=== PATIENT | male | born 1950 | race Caucasian/White ===

== ENCOUNTER 2024-10-01 07:56 | Day surgery (SDC) | payer OTHER, SELFPAY ==
[2024-09-14 09:59] VITALS: BMI 29.2
[2024-09-14 10:35] LABS: INR 1.22; PT 15.7 Sec (11.4-14.6)
[2024-09-14 10:56] LABS: % Basophils 2.1 % (0-2); % Eosinophils 4.6 % (0-6); % Immature Granulocytes 0.4 % (0-0.5); % Lymphocytes 17.5 % (20.5-51.1); % Monocytes 10.3 % (1.7-9.3); % Neutrophils 65.1 % (42.2-75.2); Absolute Basophils 0.2 10^3/uL (0-0.2); Absolute Eosinophils 0.4 10^3/uL (0-0.7); Absolute Lymphocytes 1.6 10^3/uL (1.2-3.4); Absolute Monocytes 0.9 10^3/uL (0.1-0.6); Absolute Neutrophils 5.8 10^3/uL (1.4-6.5); Hematocrit 49.2 % (39.0-52.0); Hemoglobin 16.3 g/dL (13.0-18.0); Mean Corp Hgb Conc. 33.1 g/dL (33.0-37.0); Mean Corpuscular Hgb 29.1 pg (27.0-31.0); Mean Corpuscular Volume 87.9 fL (80.0-94.0); Mean Platelet Volume 10.2 fL (7.4-10.4); Nucleated Red Blood Cells % 0 % (-); Platelet Count 688 10^3/uL (130-400); Red Cell Dist. Width 16.1 % (11.5-14.5)
[2024-09-14 11:12] LABS: ALT (SGPT) 20 U/L (0-50); AST (SGOT) 25 U/L (17-59); Albumin 4.4 g/dl (3.5-5.0); Alkaline Phosphatase 74 U/L (38-126); Blood Urea Nitrogen 23 mg/dl (9-20); Calcium 9.9 mg/dl (8.4-10.2); Carbon Dioxide 24 mmol/L (22-30); Chloride 112 mmol/L (98-107); Estimated Creatinine Clearance 81 ml/min; Glucose 90 mg/dl (70-99); Magnesium 1.9 mg/dl (1.6-2.3); Potassium 5.1 mmol/L (3.5-5.1); Sodium 142 mmol/L (135-145); Total Bilirubin 1.4 mg/dl (0.2-1.3); Total Protein 6.5 g/dl (6.3-8.2); eGFR > 60.00
--- NOTE | 2024-09-15 14:46 | W.PN.UPDATE ---
Update Note
Progress Note Update
Thrombocytosis Platelets 688-faxed to PCP-confirmed office has received. Spoke to Dr. Tomás anderson. Baseline platelet range for patient dates back to 2019 and is b/w 500-700 with no formal platelet disorder nor complication due to this.
We are ok to proceed with PVI per Dr. Matthews. Possible essential thrombocytosis with no additional abnormality on CBC. Eventual hematology eval/bone marrow biopsy if indicated.
[2024-10-01] VITALS (10 sets, daily range): BP systolic 144–158; BP diastolic 68–86; BMI 28.4
[2024-10-01 11:28] LABS: ACT-LR - POC 277 Seconds (116-155)
[2024-10-01 11:57] LABS: ACT-LR - POC 244 Seconds (116-155)
--- NOTE | 2024-10-01 12:13 | ITS.CL.ABL ---
Switch Foreman - Ablation
Ablation
Procedure Report:
ELECTROPHYSIOLOGY ABLATION STUDY
DATE:: October 01, 2024�����������������������������REFERRING: Dr. Carlyle Lazar
INDICATION: Paroxysmal supraventricular tachycardia in the form of atrial fibrillation.��Prior history of coronary artery bypass surgery
HISTORY: See H and P.��As above
ANTIARRHYTHMIC DRUG: Diltiazem
PRE-PROCEDURE GEE: No atrial thrombus on intracardiac ultrasound
PRESENTING RHYTHM: Sinus rhythm
'TIME-OUT':��called and confirmed.
SEDATION/ANESTHESIA:��provided via the anesthesia department using general anesthesia (LMA).
INTRAVENOUS/ARTERIAL ACCESS:
Right femoral venous - 8Fr
Left femoral venous - 8 Fr, 6 Fr
[id number] suture to each venotomy site was placed for a adequate hemostasis
Ultrasound guidance for bilateral femoral vein access was utilized by me to obtain access with demonstration of normal anatomy
CHADS-VASC Score:
HAS-Bled Score
PROCEDURE:
1.��A decapolar CS catheter was placed within the CS for mapping and pacing.��This was also used as the reference catheter for the 3-D map.
2. The intracardiac ultrasound catheter was positioned in the RA to identify the FO for targeting of transseptal puncture, assist��in identification of the pulmonary vein ostia, monitoring pre and post ablation pulmonary vein flow velocities,
monitoring for 'bubble' formation during RF application as a sign of thermal injury,��and to monitor for pericardial effusion during mapping and ablation procedure.���Left atrial size, LV ejection fraction, and pulmonary vein flows were monitored
pre and post ablation procedure. The other valves were inspected and found to be free of significant regurgitation or stenosis.
3.��Half of the calculated heparin bolus was administered prior to the first transeptal puncture.��Transseptal puncture was performed to diagnose RA and LA pressure so that safetey of LA mapping and ablation could be further assessed, and to access
the left atrium and pulmonary veins for mapping and ablation.��This entailed advancing an 16.8 Japanese sheath, RF wire with sheath and with dilator into the superior vena cava and withdrawing both (monitoring intracardiac ultrasound, fluoroscopy and
tip pressure) with the tip oriented toward the atrial septum.��The fossa ovalis was engaged (indicated by sudden displacement of the sheath tip as well as tenting of the fossa seen on intracardiac ultrasound).��Left atrial access required a pass
with the Brock[place]rough needle extended.��Left atrial catheter position was confirmed by pressure monitoring (RA mean pressure 8 mm Hg and LA mean presure 14 mm Hg), LA saturation (99%),��as well as fluoroscopy.��The sheath was advanced over the
dilator and positioned in the left atrium.��The remainder of the calculated heparin bolus was administered and heparin was
infused to maintain ACT at 300 -350 seconds throughout the case.
4.��RA pacing was performed via the proximal decapolar poles and LA pacing was performed via the distal decapolar poles.
5. A quadrapolar catheter was first positioned at the His position for His Bundle recording which was tagged via the 3-D Navex sytem, and then passed to the RVA for RV pacing and recording.
6. The grid and Penta spline catheter were placed in each of the LIPV, LSPV, RSPV and the RIPV.��
7.��Next, a 3-D map was created using Navex.���A 3-D reconstructed CT image was compared to the 3-D Navex map to assist in anatomic interpretation, mapping and ablation.��The CT image and the NavX image were fused.
8. Initial 56 lesions were given in flower and all of post to the pulmonary veins and floor opposed to the roof posterior wall and floor. During ablation of the left inferior pulmonary vein initially the patient went into atrial fibrillation. We
proceeded to ablate each of the 4 veins with all of in basket pose in atrial fibrillation persisted. We then performed a roof line, floor line, and posterior wall substrate ablation in the left atrial posterior wall in atrial fibrillation as atrial
fibrillation persisted and persisted through this lesion set. We then cardioverted the patient to sinus rhythm 1 200 J synchronized biphasic shock and demonstrated all 4 pulmonary veins to be isolated in the posterior wall large isolated but with
persistent signal in the roof and anterior roof outside the left superior pulmonary vein. 17 additional lesions were given in basket and flower opposed to the roof and its anterior aspect and posterior aspect as well as to the floor of the left
inferior pulmonary vein just outside the left inferior pulmonary vein. A total then of 73 lesions were given with entrance exit block and the posterior wall roof and floor left atrium as well as all 4 pulmonary veins. EP study with atrial
extrastimuli burst atrial pacing and AV Wenckebach did not induce any other nonpulmonary vein triggers or other supraventricular mechanisms of arrhythmia.
9. Normal sinus node and AV node function noted.
TOTAL FLOURO TIME: 14.1 minutes 123 mGy
TOTAL RF DURATION: 0 minutes
REVERSAL OF HEPARIN: 25 mg of protamine, slow IV administration
COMPLICATIONS:
None
Intracardiac US shows no pericardial effusion post ablation.
SUMMARY:��
Complex left atrial mapping and ablation.
Isolation of all 4 pulmonary veins as well as the posterior wall roof and floor the left atrium as above. The posterior wall lesions were performed in atrial fibrillation and atrial fibrillation persisted through all the extrapulmonary vein
substrate. Patient was cardioverted to sinus rhythm.
RECOMMENDATIONS:
1. Ambulate in 4 hours
2. Resume anticoagulation
3.��Plan to see the patient in 6 to 8 weeks
4.��Consider same-day discharge
Copy to: Dr. Carlyle Lazar
== END 2024-10-01 16:55 | disposition home or self-care (01) ==
LOC: CATH 07:56
PROVIDERS: ATTENDING PHYSICIAN Internal Medicine Cardiovascular Disease; FAMILY PHYSICIAN Family Medicine Sports Medicine; OTHER PHYSICIAN Internal Medicine Cardiovascular Disease
DX: I48.0 Paroxysmal atrial fibrillation (principal); I47.19 Other supraventricular tachycardia; D75.839 Thrombocytosis, unspecified; E03.9 Hypothyroidism, unspecified; E78.5 Hyperlipidemia, unspecified; I10 Essential (primary) hypertension; I25.10 Atherosclerotic heart disease of native coronary artery without angina pectoris; M10.9 Gout, unspecified; M19.90 Unspecified osteoarthritis, unspecified site; N40.0 Benign prostatic hyperplasia without lower urinary tract symptoms; Z79.01 Long term (current) use of anticoagulants; Z79.890 Hormone replacement therapy; Z79.899 Other long term (current) drug therapy; Z87.891 Personal history of nicotine dependence; Z90.49 Acquired absence of other specified parts of digestive tract; Z95.1 Presence of aortocoronary bypass graft; Z96.653 Presence of artificial knee joint, bilateral
CPT/HCPCS: C1732; C1894; C1730; C1769; C1892; C1759; 36415; 75572; 80053; 83735; 85025; 85347; 85610; 86850; 86900; 86901; 93005; 93656; 93657; C1733; C1766; Q9967

== ENCOUNTER 2024-10-15 10:09 | Day surgery (SDC) | payer OTHER, SELFPAY ==
--- NOTE | 2024-10-15 12:07 | ITS.CL.CARDI ---
Mechanical Technician - Cardioversion
Cardioversion
Procedure Report:
Date of Procedure: October 15 2024
Procedure: Cardioversion
Indication: Symptomatic atrial fibrillation
Performing Physician: Earnest Spencer DO, FACC
Technique: The patient was brought to the holding area. Signed informed consent was obtained. A time out was called and performed. The patient was anesthetized by the anesthesia service. Anticoagulation status was reviewed and appropriate. R2 pads
were placed anteriorly and posteriorly. A 250 J synchronized biphasic shock restored normal sinus rhythm without significant bradycardia. There were no complications.
Conclusion: Uncomplicated cardioversion from atrial fibrillation to sinus rhythm.
Recommendation: Routine post cardioversion care. Continue custodial anticoagulation.
== END 2024-10-15 12:41 | disposition home or self-care (01) ==
LOC: CATH 10:09
PROVIDERS: ATTENDING PHYSICIAN Nuclear Medicine Nuclear Cardiology; FAMILY PHYSICIAN Family Medicine Sports Medicine; REFERRING PHYSICIAN Internal Medicine Cardiovascular Disease
DX: I48.0 Paroxysmal atrial fibrillation (principal); I25.10 Atherosclerotic heart disease of native coronary artery without angina pectoris; I10 Essential (primary) hypertension; E78.5 Hyperlipidemia, unspecified; Z79.01 Long term (current) use of anticoagulants; Z87.891 Personal history of nicotine dependence
CPT/HCPCS: 92960; 93005